=== PATIENT | female | born 1990 | race Caucasian/White ===

== ENCOUNTER 2019-12-06 01:38 | Outpatient (CLI) | payer OTHER, SELFPAY ==
[2019-12-06 19:30] LABS: SARS-CoV-2 RNA PCR Negative
== END 2019-12-06 01:39 | disposition home or self-care (01) ==
LOC: ANHCOVIDDT 01:39
PROVIDERS: Visit Provider Otolaryngology
DX: Z01.812 Encounter for preprocedural laboratory examination (principal); Z11.59 Encounter for screening for other viral diseases
CPT/HCPCS: 87635; C9803; U0003

== ENCOUNTER 2019-12-09 01:13 | Day surgery (SDC) | payer OTHER, SELFPAY ==
[2019-12-01 14:31] VITALS: BMI 22.6
--- NOTE | 2019-12-08 06:41 | PM.PROC ---
Procedure Note - Detailed Date of procedure: 12/08/19 Pre-op diagnosis: Left Neck Mass left neck mass possible lipoma Post-op diagnosis: same Procedure performed: excision left neck mass Surgeon: Asael Manzo MD Estimated blood loss (mL): 5 Drains: No Packing: No Pathology: yes Complications: No immediate complications Condition: stable Disposition: PACU Findings: lipoma
--- NOTE | 2019-12-08 09:16 | WPDANESEPP ---
Anes - Eval Pre Procedure Procedure: Operation Date: 12/09/19 07:30 Proposed Procedures p Excision Left Neck Mass - Asael Manzo MD Date/Time: 12/08/19 09:16 Pre Op Diagnosis: Left Neck Mass Patient Data Age: 29 Gender: F Height: 1.68 m Weight: 63.5 kg Allergies Allergy/AdvReac Type Severity Reaction Status Date / Time No Known Allergies Allergy Verified 12/01/19 14:32 Home Medications Medication Instructions Recorded Confirmed Type levonorgestrel [Mirena] 1 device INTRAUTERINE ONCE 12/01/19 12/01/19 History Patient hx anesthesia problems: none Family hx anesthesia problems: none PMFSH Social History Social History Smoking status: Never smoker Alcohol intake: current Drinks per week: 5 Substance use: never Spiritual care concerns: No Exam Day of Procedure 12/08/19 09:16
--- NOTE | 2019-12-09 06:15 | P.HP_ITS ---
History of Present Illness History of Present Illness Consent: Risks, benefits, and alternatives have been discussed and questions answered. Patient agrees to proceed with procedure. Chief complaint: Left Neck Mass Narrative: Briseyda Lopez is a 29 year old female with left neck mass previously excised. Possible lipoma. Review of Systems Review of Systems: All systems reviewed & are unremarkable except as noted in HPI and below PMFSH Social History Social History Smoking status: Never smoker Alcohol intake: current Drinks per week: 5 Substance use: never Spiritual care concerns: No Meds Home Medications and Allergies Home Medications Medication Instructions Recorded Confirmed Type levonorgestrel [Mirena] 1 device INTRAUTERINE ONCE 12/01/19 12/01/19 History Allergies Allergy/AdvReac Type Severity Reaction Status Date / Time No Known Allergies Allergy Verified 12/09/19 06:02 Assessment and Plan Additional Plan Plan is for an excision of left neck mass.
--- NOTE | 2019-12-09 06:20 | WPDHPUPDATE1 ---
History and Physical Update Update Date/Time: 12/09/19 06:20 History and Physical has been reviewed, including an updated exam of the patient. There are NO changes in the patient's condition. Risks, benefits, and alternatives have been discussed and questions answered. Patient agrees to proceed with procedure.
[2019-12-09] MEDS: LACTATED RINGERS 1,000 ML 30 ML IV CONT (06:30)
[2019-12-09 06:34] VITALS: BP 107/72; PULSE 81; RESP 16; TEMP 36.1; O2SAT 100
--- NOTE | 2019-12-09 07:03 | P.PNAN_ITS ---
Anes - Eval Final PreProcedure Day of Procedure 12/09/19 07:03 Patient weight: normal Heart: regular rate and rhythm Lungs: clear to auscultation Airway: Mallampati scale class II Neurological: alert and oriented Last oral intake: >/= 8 hours ASA classification: I Emergent: no Anesthetic plan: proceed Anesthesia type and monitoring: general LMA and standard monitoring Informed Consent: The patient's anesthetic plan and its attendant risks and [place] efits were discussed with the patient/family/POA. Questions were solicited and answers provided to the satisfaction of the patient/family/POA.
[2019-12-09] MEDS: LIDO 1%/EPINEPHRINE 1:100,000 20 ML VIAL INFILTRATE (07:41)
--- NOTE | 2019-12-09 07:54 | PM.PROC ---
Procedure Note - Detailed Date of procedure: 12/09/19 Pre-op diagnosis: Left Neck Mass left neck mass Post-op diagnosis: same Procedure performed: Excision left neck mass Description of procedure: patient was prepped and draped in usual fashion general anesthesia the area was injected xylocaine with Adrenalin a horizontal incision made over the prominence of this mass through the prior scar elliptical advanced and elevated the large lipoma was removed with bipolar the a bipolar dissection was no significant bleeding 9% of the lipoma was removed closed in layers of for of 3 0 Vicryl subcuticular Monocryl Anesthesia: GLMA Surgeon: Asael Manzo MD Estimated blood loss (mL): 5 Drains: No Packing: No Pathology: yes Complications: No immediate complications Condition: stable Disposition: PACU Findings: large lipoma
[2019-12-09 08:05] VITALS: BP 100/64; PULSE 102; RESP 12; O2SAT 98
[2019-12-09 08:20] VITALS: BP 99/62; PULSE 109; RESP 16
[2019-12-09 08:49] VITALS: BP 107/64; PULSE 69; RESP 16
== END 2019-12-09 09:10 | disposition home or self-care (01) ==
PROVIDERS: Visit Provider Otolaryngology
PROC: (CPT 11426; principal; 2019-12-09 07:30)
DX: D17.0 Benign lipomatous neoplasm of skin and subcutaneous tissue of head, face and neck (principal)
CPT/HCPCS: 11426; 12042; 88304; A9270; J2250; J2704; J3010; J7120

== ENCOUNTER → 2023-04-23 11:47 | Outpatient (CLI) | payer OTHER, SELFPAY ==
--- NOTE | ~2023-04-23 | CT_ITS ---
CT Facial Bones Clinical Indication: Injury Technique: Contiguous axial scans were obtained through the facial bones followed by coronal and sagi ttal reconstructions. Dose reduction technique was used on this scan by utilizing automated exposure control and iterative reconstruction technique. The dose-length product (DLP) was 266.39 mGy-cm. Findings: No acute fractures are identified. Probable focal old blowout fracture of the left lamina p apyracea. The visualized paranasal sinuses are clear. Intraorbital soft tissues appear normal. There is mild soft tissue edema and subcutaneous emphysema at the left infraorbital region. Impression: Mild soft tissue posttraumatic change at the left infraorbital region. Probable focal old blowout fracture of the left lamina papyracea. No acute fracture evident. Reviewed, dictated and finalized at location . [facility] [employer] Impression: Mild soft tissue posttraumatic change at the left infraorbital region. Probable focal old blowout fracture of the left lamina papyracea. No acute frac ture evident.
== END ==
PROVIDERS: PCP Family Medicine; Visit Provider Family Medicine
DX: S05.12XA Contusion of eyeball and orbital tissues, left eye, initial encounter (principal); X58.XXXA Exposure to other specified factors, initial encounter
CPT/HCPCS: 70486

== ENCOUNTER 2024-11-11 10:30 | Outpatient (CLI) | payer OTHER, SELFPAY ==
--- NOTE | ~2024-11-11 | XR_ITS ---
Left Knee Technique: AP and lateral views were obtained. Clinical History: Pain Findings: No fracture or dislocation is seen. Osseous alignment is anatomic. Joint spaces are preserv ed without degenerative or erosive change. Soft tissues are unremarkable. No joint effusion is seen. Impression: Unremarkable left knee radiographs. Reviewed, dictated and finalized at location . Impression: Unremarkable left knee radiographs.
== END 2024-11-11 10:31 | disposition home or self-care (01) ==
DX: M25.562 Pain in left knee (principal)
CPT/HCPCS: 73560